=== PATIENT | female | born 1990 | race Caucasian/White ===

== ENCOUNTER 2017-07-15 17:51 | Inpatient (IN) | payer OTHER, MEDICAID ==
[2017-07-15] MEDS: LACTATED RINGER'S 1,000 ML IV ×2 (21:23→23:39)
[2017-07-15] MEDS ORDERED: OXYCODONE/ASPIRIN (4.88/325) TAB PO (21:30)
[2017-07-15] MEDS ORDERED: LIDOCAINE 1% (MPF) 30 ML INJ INJ (21:30)
[2017-07-15] MEDS ORDERED: OXYTOCIN 30 UNITS/LR 500 ML IV (21:30)
[2017-07-15] MEDS ORDERED: MISOPROSTOL 200 MCG TAB PR (21:30)
[2017-07-15] MEDS ORDERED: BUTORPHANOL 2 MG INJ IV (21:30)
[2017-07-15] MEDS ORDERED: METHYLERGONOVINE 0.2 MG INJ IM (21:30)
[2017-07-15] MEDS ORDERED: CARBOPROST 250 MCG INJ IM (21:30)
[2017-07-15] MEDS ORDERED: IBUPROFEN 600 MG TAB PO ×2 (21:30→23:30)
[2017-07-15 21:51] LABS: ADD MAN DIFF? NO
[2017-07-15 22:02] LABS: BASOPHILS % 0.3 % (0.0-2.0); EOSINOPHILS % 0.3 % (0.0-7.0); HEMOGLOBIN 12.3 g/dl (12.0-16.0); LYMPHOCYTES # 2.2 10^3/ul (0.8-2.9); LYMPHOCYTES % 29.5 % (15.0-51.0); MEAN CORPUSCULAR HEMOGLOBIN 30.4 pg (29.0-33.0); MEAN CORPUSCULAR HGB CONC 35.1 g/dl (32.0-37.0); MEAN CORPUSCULAR VOLUME 86.6 fl (82.0-101.0); MONOCYTE # 0.4 10^3/ul (0.3-0.9); MONOCYTES % 5.5 % (0.0-11.0); NEUTROPHIL # 4.7 10^3/ul (1.6-7.5); NEUTROPHILS % 63.7 % (39.0-77.0); PLATELET COUNT 173 10^3/UL (140-415); RED BLOOD COUNT 4.04 10^6/ul (4.20-5.40); RED CELL DISTRIBUTION WIDTH 13.6 % (11.5-14.5)
[2017-07-15 22:02] LABS: WHITE BLOOD COUNT 7.4 10^3/ul (4.8-10.8)
[2017-07-15 22:15] LABS: INR 0.88; PARTIAL THROMBOPLASTIN TIME 26.5 Sec (25.0-35.0); PT RATIO 0.9
[2017-07-15 22:54] LABS: HEPATITIS B SURFACE ANTIGEN NEGATIVE (NEGATIVE)
[2017-07-15] MEDS ORDERED: OXYCODONE/ACETAMINOPHEN (5/325) TAB PO (23:30)
[2017-07-15] MEDS ORDERED: FENTAnyl 2MCG/ML-ROPIV 0.2% 100 ML (23:52)
[2017-07-16] MEDS ORDERED: NALOXONE (0.4 MG/ML) INJ IV
[2017-07-16] MEDS ORDERED: DIPHENHYDRAMINE 50 MG INJ IV
[2017-07-16] MEDS: OXYTOCIN 30 UNITS/LR 500 ML IV ×5 (00:28→11:07)
[2017-07-16] MEDS: FENTAnyl 2MCG/ML-ROPIV 0.2% 100 ML BAG EPI (00:30)
[2017-07-16] MEDS: LACTATED RINGER'S 1,000 ML IV (05:01)
[2017-07-16] MEDS ORDERED: DIBUCAINE 1% 30 GM OINT PR (06:30)
[2017-07-16] MEDS ORDERED: HYDROCODONE/APAP (5/325) TAB PO ×2 (06:30)
[2017-07-16] MEDS ORDERED: DIPHENHYDRAMINE 25 MG CAP PO (06:30)
[2017-07-16] MEDS ORDERED: OXYTOCIN 30 UNITS/LR 500 ML IV (06:30)
[2017-07-16] MEDS ORDERED: ONDANSETRON 4 MG INJ IV ×2 (06:30)
[2017-07-16] MEDS ORDERED: ZOLPIDEM 5 MG TAB PO (06:30)
[2017-07-16] MEDS ORDERED: ACETAMINOPHEN 325 MG TAB PO (06:30)
[2017-07-16] MEDS ORDERED: CARBOPROST 250 MCG INJ IM (06:30)
[2017-07-16] MEDS ORDERED: MISOPROSTOL 200 MCG TAB PR (06:30)
[2017-07-16] MEDS ORDERED: METHYLERGONOVINE 0.2 MG INJ IM (06:30)
[2017-07-16] MEDS: SENNA/DOCUSATE NA (8.6MG/50MG) TAB PO ×2 (10:58→20:28)
[2017-07-16] MEDS: LANOLIN 7 GM TUBE TOP (11:06)
[2017-07-16] MEDS: BENZOCAINE 20% 56 ML SPRAY TOP (11:06)
[2017-07-16] MEDS: IBUPROFEN 800 MG TAB PO ×3 (11:56→23:29)
[2017-07-16] MEDS: ACETAMINOPHEN 325 MG TAB PO (19:57)
[2017-07-16 21:47] LABS: RAPID PLASMA REAGIN NONREACTIVE (NR)
[2017-07-17] MEDS: IBUPROFEN 800 MG TAB PO ×4 (05:37→23:31)
[2017-07-17] MEDS: SENNA/DOCUSATE NA (8.6MG/50MG) TAB PO ×2 (09:43→21:04)
[2017-07-17 11:17] LABS: ADD MAN DIFF? NO
[2017-07-17 11:24] LABS: BASOPHILS % 0.3 % (0.0-2.0); EOSINOPHILS # 0.1 10^3/ul (0.0-0.5); EOSINOPHILS % 0.5 % (0.0-7.0); HEMATOCRIT 38.3 % (37.0-47.0); LYMPHOCYTES # 2.3 10^3/ul (0.8-2.9); LYMPHOCYTES % 21.3 % (15.0-51.0); MEAN CORPUSCULAR HEMOGLOBIN 30.1 pg (29.0-33.0); MEAN CORPUSCULAR HGB CONC 33.9 g/dl (32.0-37.0); MEAN CORPUSCULAR VOLUME 88.7 fl (82.0-101.0); MEAN PLATELET VOLUME 12.1 fl (7.4-10.4); MONOCYTE # 0.5 10^3/ul (0.3-0.9); MONOCYTES % 4.6 % (0.0-11.0); NEUTROPHILS % 72.8 % (39.0-77.0); PLATELET COUNT 177 10^3/UL (140-415); RED BLOOD COUNT 4.32 10^6/ul (4.20-5.40); RED CELL DISTRIBUTION WIDTH 13.7 % (11.5-14.5)
[2017-07-18] MEDS: IBUPROFEN 800 MG TAB PO ×2 (05:26→12:00)
[2017-07-18] MEDS: SENNA/DOCUSATE NA (8.6MG/50MG) TAB PO (08:40)
[2017-07-18] MEDS: DIPHTH/TET/ACEL PERTUSS (ADULT) 0.5 ML VIAL IM* (08:41)
[2017-07-18] MEDS: MEASLES,MUMPS,RUBELLA VACCINE INJ SC* (08:50)
[2017-07-18] MEDS: VARICELLA VACCINE LIVE/PF 1,350 UNIT/0.5 ML ML SC* (08:51)
== END 2017-07-18 14:05 | disposition home or self-care (01) | DRG 775 ==
LOC: OBT 17:51 → PP1 07-16 10:12 → L-D 17:53 → OBT 20:55 → L-D 20:55
PROVIDERS: Obstetrics & Gynecology
PROC: 10E0XZZ Delivery of Products of Conception, External Approach (ICD-10-PCS; principal; 2017-07-16)
PROC: 0KQM0ZZ Repair Perineum Muscle, Open Approach (ICD-10-PCS; 2017-07-16)
PROC: 3E033VJ Introduction of Other Hormone into Peripheral Vein, Percutaneous Approach (ICD-10-PCS; 2017-07-16)
DX: O70.1 Second degree perineal laceration during delivery (principal); Z37.0 Single live birth; Z3A.39 39 weeks gestation of pregnancy
CPT/HCPCS: 62319; 85025; 85610; 85730; 86592; 86850; 86900; 86901; 87340